=== PATIENT | male | born 1995 | race Caucasian/White ===

== ENCOUNTER → 2017-02-20 | Outpatient (CLI) | payer BC ==
[~2017-02-20] MED LIST: GADOBUTROL 10mMol/10ml INJECTION IV ONE; IOTHALAMATE MEGLUMINE 60% (600mg/ml) 30ml INJ IV ONE; NO ROUTINE MEDS; NORMAL SALINE 50 ML IV ONE
--- NOTE | 2017-02-20 10:49 | DI ---
Indication: ITS.REASON: S69.92XA baseball injury two weeks ago with wrist pain and decreased strength PROCEDURE: MRI WRIST LEFT W/CONTRAST: Encounter: Initial Comparison: None Technique: Multiplanar multisequence MR imaging of the left wrist was performed after the administration of intra-articular contrast. The arthrogram injection is described in a separate procedural report. Findings: The contents of the carpal tunnel appear normal. The flexor and extensor tendons of the wrist are intact without focal tear or tendinopathy. A marker indicating the site of patient's maximal pain was placed adjacent to the extensor carpi ulnaris tendon. Bone marrow signal intensity is normal. No acute fracture. Muscular signal intensity is normal. There is contrast in the proximal and distal carpal rows. No contrast in the distal radioulnar joint. The triangular fibrocartilage appears intact. There is a possible small tear of the lunotriquetral ligament best seen on coronal T1 image #8. Impression: Contrast in the proximal and distal carpal row suggesting either a scapholunate or lunotriquetral ligament tear. There is evidence of a possible lunotriquetral ligament tear seen on coronal T1 image #8. No osseous or tendinous injury identified. .
--- NOTE | 2017-02-20 14:39 | DI ---
Indication:ITS.REASON: S69.92XA INJURY Procedure:ARTHROGRAM WRIST LT W/FLUORO. WRIST INJECTION FOR MRI ARTHROGRAM: After discussing the details of the procedure, including the risks, the patient wished to proceed. Informed consent was obtained. A preprocedural timeout was performed to confirm the correct patient and procedure. Using aseptic technique, local lidocaine anesthetic, and fluoroscopic guidance throughout, a 25-gauge infiltrating needle was directed into the radioscaphoid joint of the left wrist. A small amount of x-ray contrast was injected to confirm proper intra-articular placement of the needle tip. A fluoroscopic image was obtained. Following this, 3 cc of dilute gadolinium were slowly instilled within the joint of the left wrist. The needle was removed. The patient tolerated this procedure well. Following this, the patient was taken to MRI for their scan. Please see the separate MRI report. Impression: Technically successful left intra-articular wrist joint injection for a MRI arthrogram. Fluoroscopy dose: 0.73 mGy (Cumulative air kerma) Rafael Hays RPA/LILY performed this under my personal supervision. .
== END ==
LOC: IMA 08:01
PROVIDERS: ATTEND Family Medicine Sports Medicine
DX: R93.7 Abnormal findings on diagnostic imaging of other parts of musculoskeletal system (principal)
CPT/HCPCS: 25246; 73222; 77002; A9585; J7050; Q9961